=== PATIENT | male | born 1995 | race Caucasian/White ===

== ENCOUNTER 2018-03-08 21:37 | Emergency (ER) | payer BC ==
[2018-03-08] MEDS ORDERED: HYDROCODONE/APAP 10/325 TAB ONE (22:40)
--- NOTE | 2018-03-08 23:34 | ER ---
Nurse's Notes [facility] Name: Cora Chandra Age: 22 yrs Sex: Male : 1995 Arrival Date: 03/08/2018 Time: 21:44 Bed 20 Private MD: Diagnosis: Other sprain of shoulder joint Presentation: 03/08 21:47 Presenting complaint: Patient states: right shoulder pain started at 1900 while ak1 shifting gears in truck. pt denies injury in the past few days. Transition of care: patient was not received from another setting of care. Onset of symptoms was March 08, 2018. Risk Assessment: Do you want to hurt yourself or someone else? Patient reports no desire to harm self or others. Initial Sepsis Screen: Does the patient meet any 2 criteria? No. Patient's initial sepsis screen is negative. Does the patient have a suspected source of infection? No. Patient's initial sepsis screen is negative. Care prior to arrival: None. 21:47 Method Of Arrival: Ambulatory ak1 21:47 Acuity: RADHA 4 ak1 Triage Assessment: 21:48 General: Appears in no apparent distress. Behavior is calm, cooperative. Pain: ak1 Complains of pain in right shoulder. EENT: No signs and/or symptoms were reported regarding the EENT system. Neuro: No deficits noted. Cardiovascular: No deficits noted. Respiratory: No deficits noted. GI: No signs and/or symptoms were reported involving the gastrointestinal system. : No signs and/or symptoms were reported regarding the genitourinary system. Derm: No signs and/or symptoms reported regarding the dermatologic system. Musculoskeletal: Range of motion: limited in right shoulder Reports pain in right shoulder since 1900 today. Historical: - Allergies: 21:48 No Known Allergies; ak1 - Home Meds: 21:48 None [Active]; ak1 - PMHx: 21:48 None; ak1 - PSHx: 21:48 None; ak1 - Immunization history:: Adult Immunizations unknown. - Social history:: Smoking status: Patient uses tobacco products, smokes one pack cigarettes per day. - Ebola Screening: : No symptoms or risks identified at this time. Screenin:49 Abuse screen: Denies threats or abuse. Denies injuries from another. Nutritional ak1 screening: No deficits noted. Tuberculosis screening: No symptoms or risk factors identified. Fall Risk None identified. Assessment: 22:04 Reassessment: SEE TRIAGE NOTE. 22YO WM P/W R SHOULDER PAIN, DENIES TRAUMA. bp NEUROVASCULAR INTACT. 23:21 Reassessment: ALL CURRENT ORDERS COMPLETED, PT TBDC AFTER SLING APPLICATION. bp 23:49 Reassessment: PT D/C HOME AMBULATORY, DX WITH R SHOULDER SPRAIN. bp Vital Signs: 21:49 BP 147 / 96; Pulse 78; Resp 18; Temp 98.5(TE); Pulse Ox 98% on R/A; Weight 81.65 kg ak1 (R); Height 5 ft. 6 in. (167.64 cm) (R); Pain 5/10; 23:20 BP 133 / 80; Pulse 65; Resp 16; Pulse Ox 99% ; bp 21:49 Body Mass Index 29.05 (81.65 kg, 167.64 cm) ak1 ED Course: 21:44 Patient arrived in ED. es 21:48 Triage completed. ak1 21:49 Arm band placed on Patient placed in waiting room, Patient notified of wait time. ak1 22:03 Donovan Arias, RN is Primary Nurse. bp 22:04 Biju Peña PA is PHCP. jmm 22:04 Aaron Wang MD is Attending Physician. jmm 22:07 Patient has correct armband on for positive identification. Bed in low position. Call bp light in reach. Side rails up X2. Adult w/ patient. 22:43 Shoulder Right (2 View) XRAY In Process Unspecified. EDMS 23:21 No provider procedures requiring assistance completed. Patient did not have IV access bp during this emergency room visit. 23:27 Sling applied to right arm. bp 23:33 Lencho Persaud MD is Referral Physician. [facility] Administered Medications: 22:40 Drug: [place] 10 mg-325 mg 1 tabs Route: PO; bp 23:20 Follow up: Response: Pain is decreased bp Outcome: 23:34 Discharge ordered by . jmm 23:50 Patient left the ED. bp Signatures: Dispatcher [employer] EDMS Biju Peña PA PA jmJennifer Mcdaniel Amber RN RN ak1 Donovan Arias, RN RN bp
--- NOTE | 2018-03-08 23:34 | EDPHYS ---
Physician Documentation [facility] Name: Cora Chandra Age: 22 yrs Sex: Male : 1995 Arrival Date: 03/08/2018 Time: 21:44 Bed 20 Private MD: ED Physician Aaron Wang HPI: 03/08 22:10 This 22 yrs old Male presents to ER via Ambulatory with complaints of jmm Shoulder Pain. 22:10 The patient or guardian complains of decreased range of motion, pain, that is acute. jmm right shoulder and right trapezius. Context: resulted from The patient reports no obvious deformity. Onset: The symptoms/episode began/occurred acutely, just prior to arrival. Patient states he developed acute shoulder pain while shifting a gear in his automobile. Denies other injury. Historical: - Allergies: 21:48 No Known Allergies; ak1 - Home Meds: 21:48 None [Active]; ak1 - PMHx: 21:48 None; ak1 - PSHx: 21:48 None; ak1 - Immunization history:: Adult Immunizations unknown. - Social history:: Smoking status: Patient uses tobacco products, smokes one pack cigarettes per day. - Ebola Screening: : No symptoms or risks identified at this time. ROS: 22:10 Constitutional: Negative for fever, chills, and weight loss, Cardiovascular: Negative jmm for chest pain, palpitations, and edema, Respiratory: Negative for shortness of breath, cough, wheezing, and pleuritic chest pain, Abdomen/GI: Negative for abdominal pain, nausea, vomiting, diarrhea, and constipation, Back: Negative for injury and pain, : Negative for injury, bleeding, discharge, and swelling. 22:10 Skin: Negative for injury, rash, and discoloration, Neuro: Negative for headache, weakness, numbness, tingling, and seizure. 22:10 MS/extremity: Positive for pain. 22:10 All other systems are negative. Exam: 22:10 Head/Face: atraumatic. jmm 22:10 Constitutional: The patient appears alert, awake, uncomfortable. 22:10 Neck: ROM/movement: is normal. 22:10 Cardiovascular: Rate: normal. 22:10 Respiratory: the patient does not display signs of respiratory distress, Respirations: normal. 22:10 Abdomen/GI: Inspection: abdomen appears normal, distension, is not seen. 22:10 Musculoskeletal/extremity: painful rom noted to the right shoulder on abduction, held in adduction and internal rotation. 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 22:10 Skin: Appearance: Color: normal in color. 22:10 Neuro: Orientation: is normal, Mentation: is normal, Memory: is normal, Gait: 22:10 Psych: Behavior/mood is pleasant, cooperative. Vital Signs: 21:49 BP 147 / 96; Pulse 78; Resp 18; Temp 98.5(TE); Pulse Ox 98% on R/A; Weight 81.65 kg ak1 (R); Height 5 ft. 6 in. (167.64 cm) (R); Pain 5/10; 23:20 BP 133 / 80; Pulse 65; Resp 16; Pulse Ox 99% ; bp 21:49 Body Mass Index 29.05 (81.65 kg, 167.64 cm) ak1 MDM: 22:18 Patient medically screened. [facility] 23:00 Differential diagnosis: Anterior dislocation without fracture, DJD, tendonitis, muscle jmm spasm. Data reviewed: vital signs, nurses notes, radiologic studies. 23:00 Counseling: I had a detailed discussion with the patient and/or guardian regarding: the [facility] historical points, exam findings, and any diagnostic results supporting the discharge/admit diagnosis, the presence of at least one elevated blood pressure reading (>120/80) during this emergency department visit, radiology results, the need for outpatient follow up, to return to the emergency department if symptoms worsen or persist or if there are any questions or concerns that arise at home. 03/08 22:18 Order name: Shoulder Right (2 View) XRAY [facility] 03/08 23:27 Order name: Sling; Complete Time: 23:27 bp Administered Medications: 22:40 Drug: [place] 10 mg-325 mg 1 tabs Route: PO; bp 23:20 Follow up: Response: Pain is decreased bp Disposition: 03/09 01:25 Co-signature as Attending Physician, Aaron Wang MD. pkl Disposition: 03/08/18 23:34 Discharged to Home. Impression: Other sprain of shoulder joint. - Condition is Stable. - Discharge Instructions: Shoulder Sprain. - Prescriptions for Ibuprofen 800 mg Oral Tablet - take 1 tablet by ORAL route every 8 hours As needed take with food; 30 tablet. Valium 5 mg Oral Tablet - take 1 tablet by ORAL route every 8 hours As needed; 6 tablet. - Medication Reconciliation Form, Thank You Letter, Antibiotic Education, Prescription Opioid Use form. - Follow up: Lencho Persaud MD; When: 2 - 3 days; Reason: Continuance of care. Signatures: Dispatcher [employer] EDMS Aaron Wang MD MD pkl Mickail, Joel, PA PA jmm Krenek, Amber, RN RN ak1 Donovan Arias RN RN bp Corrections: (The following items were deleted from the chart) 03/08 23:50 23:34 03/08/2018 23:34 Discharged to Home. Impression: Other sprain of shoulder joint. bp Condition is Stable. Forms are Medication Reconciliation Form, Thank You Letter, Antibiotic Education, Prescription Opioid Use. Follow up: Dr. Lencho Persaud; When: 2 - 3 days; Reason: Continuance of care. charisse
--- NOTE | 2018-03-09 08:16 | RAD REPORT ---
EXAM DESCRIPTION: RAD - Shoulder Right 2 View - 03/08/2018 10:43 pm CLINICAL HISTORY: Right shoulder pain FINDINGS: No fracture or dislocation is seen. No bone or joint abnormality is seen
== END 2018-03-08 23:50 | disposition home or self-care (01) ==
LOC: ER 21:37
DX: S43.491A Other sprain of right shoulder joint, initial encounter (principal); X58.XXXA Exposure to other specified factors, initial encounter; Y93.9 Activity, unspecified; Y92.9 Unspecified place or not applicable; F17.210 Nicotine dependence, cigarettes, uncomplicated
CPT/HCPCS: 99283

== ENCOUNTER 2018-09-01 22:03 | Emergency (ER) | payer BC ==
--- NOTE | 2018-09-01 23:43 | EDPHYS ---
Physician Documentation [facility] Name: Randell Chandra Age: 22 yrs Sex: Male : 1995 Arrival Date: 09/01/2018 Time: 22:06 Bed 28 Private MD: ED Physician De Thomason HPI: 09/02 00:02 This 22 yrs old Male presents to ER via Ambulatory with complaints of gs Congestion, BODY ACHE, Sore Throat. 00:02 The patient presents with sore throat. The patient describes throat pain as scratchy. gs Onset: The symptoms/episode began/occurred acutely, yesterday. Severity of symptoms: At their worst the symptoms were moderate, in the emergency department the symptoms are unchanged. Associated signs and symptoms: Pertinent positives: cough, fever, flu-like symptoms. The patient has experienced similar episodes in the past, a few times. The patient has not recently seen a physician. Historical: - Allergies: 09/01 22:20 No Known Allergies; mg2 - Home Meds: 22:20 None [Active]; mg2 - PMHx: 22:20 None; mg2 - PSHx: 22:20 None; mg2 - Immunization history:: Flu vaccine status is unknown. - Social history:: Smoking status: Patient/guardian denies using tobacco, Patient uses alcohol, occasionally. Patient/guardian denies using street drugs, IV drugs. - Ebola Screening: : No symptoms or risks identified at this time. ROS: 09/02 00:02 All other systems are negative. gs Exam: 00:02 Head/Face: Normocephalic, atraumatic. Eyes: Pupils equal round and reactive to light, gs extra-ocular motions intact. Lids and lashes normal. Conjunctiva and sclera are non-icteric and not injected. Cornea within normal limits. Periorbital areas with no swelling, redness, or edema. Neck: Trachea midline, no thyromegaly or masses palpated, and no cervical lymphadenopathy. Supple, full range of motion without nuchal rigidity, or vertebral point tenderness. No Meningismus. Chest/axilla: Normal chest wall appearance and motion. Nontender with no deformity. No lesions are appreciated. Respiratory: Lungs have equal breath sounds bilaterally, clear to auscultation and percussion. No rales, rhonchi or wheezes noted. No increased work of breathing, no retractions or nasal flaring. Abdomen/GI: Soft, non-tender, with normal bowel sounds. No distension or tympany. No guarding or rebound. No evidence of tenderness throughout. Back: No spinal tenderness. No costovertebral tenderness. Full range of motion. Skin: Warm, dry with normal turgor. Normal color with no rashes, no lesions, and no evidence of cellulitis. MS/ Extremity: Pulses equal, no cyanosis. Neurovascular intact. Full, normal range of motion. Neuro: Awake and alert, GCS 15, oriented to person, place, time, and situation. Cranial nerves II-XII grossly intact. Motor strength 5/5 in all extremities. Sensory grossly intact. Cerebellar exam normal. Normal gait. 00:02 Constitutional: The patient appears alert, awake. 00:02 ENT: TM's: are normal, Posterior pharynx: erythema, that is moderate. 00:02 Cardiovascular: Rate: tachycardic, Rhythm: regular, Pulses: no pulse deficits are appreciated. Vital Signs: 09/01 22:20 BP 133 / 97; Pulse 115; Resp 18; Temp 98.7(O); Pulse Ox 100% ; Weight 90.72 kg; Height mg2 5 ft. 11 in. (180.34 cm); Pain 7/10; 22:20 Body Mass Index 27.89 (90.72 kg, 180.34 cm) mg2 MDM: 22:39 Patient medically screened. 09/02 00:02 Differential diagnosis: group A strep tonsillitis, upper respiratory infection, viral gs syndrome. Data reviewed: vital signs, nurses notes. Counseling: I had a detailed discussion with the patient and/or guardian regarding: the historical points, exam findings, and any diagnostic results supporting the discharge/admit diagnosis, the need for outpatient follow up. Response to treatment: the patient's symptoms have markedly improved after treatment, and as a result, I will discharge patient. 09/01 22:22 Order name: Flu [facility] 09/01 22:22 Order name: Strep [facility] 09/01 22:42 Order name: Group A Streptococcus Rapid Sc; Complete Time: 23:42 EDMS 09/01 22:46 Order name: Influenza Screen (A ; Complete Time: 23:42 EDMS Administered Medications: No medications were administered Disposition: 09/01/18 23:42 Discharged to Home. Impression: Acute upper respiratory infection, unspecified. - Condition is Stable. - Discharge Instructions: Fever, Adult, Upper Respiratory Infection, Adult. - Medication Reconciliation Form, Thank You Letter, Antibiotic Education, Prescription Opioid Use form. - Follow up: Private Physician; When: 2 - 3 days; Reason: Re-evaluation by your physician. Signatures: Dispatcher [employer] EDDe López MD MD Terry Victor RN RN mg2 Corrections: (The following items were deleted from the chart) 09/01 23:50 23:42 09/01/2018 23:42 Discharged to Home. Impression: Acute upper respiratory mg2 infection, unspecified. Condition is Stable. Forms are Medication Reconciliation Form, Thank You Letter, Antibiotic Education, Prescription Opioid Use. Follow up: Private Physician; When: 2 - 3 days; Reason: Re-evaluation by your physician. gs
--- NOTE | 2018-09-01 23:43 | ER ---
Nurse's Notes [facility] Name: Randell Chandra Age: 22 yrs Sex: Male : 1995 Arrival Date: 09/01/2018 Time: 22:06 Bed 28 Private MD: Diagnosis: Acute upper respiratory infection, unspecified Presentation: 09/01 22:18 Presenting complaint: Patient states: sore throat, congestion and bodyache for 1 day. mg2 Transition of care: patient was not received from another setting of care. Onset of symptoms was September 01, 2018. Risk Assessment: Do you want to hurt yourself or someone else? Patient reports no desire to harm self or others. Initial Sepsis Screen: Does the patient meet any 2 criteria? No. Patient's initial sepsis screen is negative. Does the patient have a suspected source of infection? No. Patient's initial sepsis screen is negative. Care prior to arrival: None. 22:18 Method Of Arrival: Ambulatory mg2 22:18 Acuity: RADHA 4 mg2 Historical: - Allergies: 22:20 No Known Allergies; mg2 - Home Meds: 22:20 None [Active]; mg2 - PMHx: 22:20 None; mg2 - PSHx: 22:20 None; mg2 - Immunization history:: Flu vaccine status is unknown. - Social history:: Smoking status: Patient/guardian denies using tobacco, Patient uses alcohol, occasionally. Patient/guardian denies using street drugs, IV drugs. - Ebola Screening: : No symptoms or risks identified at this time. Screenin:21 Abuse screen: Denies threats or abuse. Denies injuries from another. Nutritional mg2 screening: No deficits noted. Tuberculosis screening: No symptoms or risk factors identified. Fall Risk None identified. Assessment: 22:23 General: Appears in no apparent distress. comfortable, Behavior is calm, cooperative. mg2 Pain: Complains of pain in throat Pain does not radiate. Pain currently is 7 out of 10 on a pain scale. Quality of pain is described as aching, Pain began gradually, 1 day ago. Is intermittent. Neuro: Level of Consciousness is awake, alert, obeys commands, Oriented to person, place, time, situation. Cardiovascular: Capillary refill < 3 seconds. Respiratory: Airway is patent Respiratory effort is even, unlabored, Respiratory pattern is regular, symmetrical, Breath sounds are clear bilaterally. in left posterior upper lobe, right posterior upper lobe, left posterior lower lobe, right posterior middle lobe and right posterior lower lobe. GI: No signs and/or symptoms were reported involving the gastrointestinal system. : No signs and/or symptoms were reported regarding the genitourinary system. EENT: Throat is reddened. Derm: Skin is intact, is healthy with good turgor, Skin is pink, warm \T\ dry. normal. Musculoskeletal: No signs and/or symptoms reported regarding the musculoskeletal system. Vital Signs: 22:20 BP 133 / 97; Pulse 115; Resp 18; Temp 98.7(O); Pulse Ox 100% ; Weight 90.72 kg; Height mg2 5 ft. 11 in. (180.34 cm); Pain 7/10; 22:20 Body Mass Index 27.89 (90.72 kg, 180.34 cm) mg2 ED Course: 22:06 Patient arrived in ED. es 22:11 Terry Victor, RN is Primary Nurse. mg2 22:19 De Thomason MD is Attending Physician. 22:19 Triage completed. mg2 22:21 Arm band placed on. mg2 22:28 Patient has correct armband on for positive identification. mg2 22:28 Strep Sent. mw2 22:28 Flu Sent. mw2 22:28 No provider procedures requiring assistance completed. Patient did not have IV access mg2 during this emergency room visit. Administered Medications: No medications were administered Outcome: 23:42 Discharge ordered by . gs 23:50 Discharged to home ambulatory, with family. mg2 23:50 Condition: stable 23:50 Discharge instructions given to patient, family, Instructed on discharge instructions, follow up and referral plans. Demonstrated understanding of instructions, follow-up care. 23:50 Patient left the ED. mg2 Signatures: Jennifer Marinelli De Thomason MD MD Elías Briggs 2 Terry Victor, ARLETH RN mg2
== END 2018-09-01 23:50 | disposition home or self-care (01) ==
LOC: ER 22:03
DX: J06.9 Acute upper respiratory infection, unspecified (principal)
CPT/HCPCS: 87070; 87081; 87804; 99283